=== PATIENT | female | born 1990 | race Asian ===

== ENCOUNTER 2021-04-04 07:10 | Inpatient (IN) | payer OTHER ==
[~2021-04-04] VITALS: Ht 154.9 cm; Wt 88.6 kg
[2021-04-04 08:00] LABS: BASOPHILS % (AUTO) 1 % (0-1); EOSINOPHILS % (AUTO) 2 % (1-7); LYMPHOCYTES % (AUTO) 17 % (22-44); MEAN CORPUSCULAR HEMOGLOBIN 30.1 pg (27.0-34.8); MEAN CORPUSCULAR HGB CONC 32.7 g/dL (32.4-35.8); MONOCYTES % (AUTO) 9 % (2-9); NEUTROPHILS % (AUTO) 71 % (42-75); PLATELET COUNT 242 x10^3/uL (130-400); RED BLOOD COUNT 4.04 x10^6/uL (3.82-5.3)
[2021-04-04] MEDS ORDERED: FENTANYL PF 100 MCG/2ML IVPush PRN ×3 (08:00)
[2021-04-04] MEDS ORDERED: OXYTOCIN 30U/ 0.9% NaCL 500ML 500 ML IV PRN (08:00)
[2021-04-04] MEDS ORDERED: OXYTOCIN 30U/ 0.9% NaCL 500ML 500 ML IV ONE ×3 (08:00)
[2021-04-04] MEDS ORDERED: ONDANSETRON 2MG/ML, 2ML IVPush PRN ×3 (08:00)
[2021-04-04] MEDS ORDERED: TERBUTALINE 1 MG/ML, 1ML IVPush PRN ×3 (08:00)
[2021-04-04] MEDS ORDERED: LACTATED RINGERS 1,000 ML IV SCH ×4 (08:00→09:30)
[2021-04-04] MEDS ORDERED: TERBUTALINE 1 MG/ML, 1ML SQ PRN ×3 (08:00)
[2021-04-04 08:01] LABS: MD NO
[2021-04-04] MEDS ORDERED: FENTANYL/BUPIV./NS/PF 250 ML EPIDCONT ONE (08:48)
[2021-04-04] MEDS ORDERED: PREN1TAB60 PO (09:14)
[2021-04-04] MEDS ORDERED: BUPIVACAINE 0.25% ONE (09:16)
[2021-04-04] MEDS ORDERED: LACTATED RINGERS 1,000 ML IVBOLUS PRN (09:30)
[2021-04-04] MEDS ORDERED: FENTANYL/BUPIV./NS/PF 250 ML EPIDCONT SCH (09:30)
[2021-04-04] MEDS ORDERED: NALOXONE 0.4 MG/ML, 1ML IVPush PRN (09:30)
[2021-04-04] MEDS ORDERED: NEWBORN KIT ONE (10:01)
[2021-04-04] MEDS ORDERED: LIDOCAINE 1%, 20ML ONE (10:01)
[2021-04-04] MEDS ORDERED: MISOPROSTOL 200 MCG TABLET ONE (10:03)
[2021-04-04] MEDS: EPHEDRINE 50 MG/ML, 1ML IVPush PRN ×2 (10:09→10:28)
[2021-04-04] MEDS ORDERED: MISOPROSTOL 200 MCG TABLET PR PRN (15:00)
[2021-04-04] MEDS ORDERED: OXYcodone/APAP 5/325MG TABLET PO PRN ×2 (15:00)
[2021-04-04] MEDS ORDERED: ONDANSETRON 2MG/ML, 2ML IV PRN (15:00)
[2021-04-04] MEDS ORDERED: SIMETHICONE 80 MG CHEW TAB PO PRN (15:00)
[2021-04-04] MEDS ORDERED: DOCUSATE 100 MG CAPSULE PO PRN (15:00)
[2021-04-04] MEDS ORDERED: ACETAMINOPHEN 325 MG TABLET PO PRN (15:00)
[2021-04-04] MEDS: OXYTOCIN 30U/ 0.9% NaCL 500ML 500 ML IV SCH (15:00)
[2021-04-04 17:26] VITALS: BP 108/68
[2021-04-04 19:45] VITALS: BP 123/84
[2021-04-04 22:20] LABS: BASOPHILS % (AUTO) 1 % (0-1); EOSINOPHILS % (AUTO) 1 % (1-7); LYMPHOCYTES % (AUTO) 12 % (22-44); MEAN CORPUSCULAR HGB CONC 32.7 g/dL (32.4-35.8); MEAN PLATELET VOLUME 8.2 fL (7.4-10.4); MONOCYTES % (AUTO) 10 % (2-9); NEUTROPHILS % (AUTO) 77 % (42-75); PLATELET COUNT 215 x10^3/uL (130-400); RED BLOOD COUNT 3.59 x10^6/uL (3.82-5.3); RED CELL DISTRIBUTION WIDTH 15.2 % (9.6-15.2)
[2021-04-04 22:21] LABS: MD NO
[2021-04-05 00:30] VITALS: BP 115/80
[2021-04-05] MEDS: IBUPROFEN 800 MG TABLET PO PRN ×2 (00:35→08:35)
[2021-04-05] MEDS: OXYTOCIN 30U/ 0.9% NaCL 500ML 500 ML IV SCH (01:00)
[2021-04-05 04:00] VITALS: BP 119/77
[2021-04-05 08:00] VITALS: BP 130/80
[2021-04-05] MEDS ORDERED: IBUP-1222 PO (08:26)
[2021-04-05] MEDS ORDERED: PRENATAL VIT/IRON/FA 1 EACH TABLET PO SCH (09:00)
== END 2021-04-05 16:25 | disposition home or self-care (01) | DRG 806 ==
LOC: LDOP 07:10 → LDIP 07:52 → 2NW 16:45
PROVIDERS: ADMIT Student in an Organized Health Care Education/Training Program; ATTEND Student in an Organized Health Care Education/Training Program
PROC: 10E0XZZ Delivery of Products of Conception, External Approach (ICD-10-PCS; principal; 2021-04-04)
PROC: 3E0R3BZ Introduction of Anesthetic Agent into Spinal Canal, Percutaneous Approach (ICD-10-PCS; 2021-04-04)
PROC: 00HU33Z Insertion of Infusion Device into Spinal Canal, Percutaneous Approach (ICD-10-PCS; 2021-04-04)
DX: O36.63X0 Maternal care for excessive fetal growth, third trimester, not applicable or unspecified (principal); O99.354 Diseases of the nervous system complicating childbirth; Z37.0 Single live birth; G51.0 Bell's palsy; Z3A.38 38 weeks gestation of pregnancy; Z82.49 Family history of ischemic heart disease and other diseases of the circulatory system; Z83.3 Family history of diabetes mellitus; Z20.822 Contact with and (suspected) exposure to COVID-19
CPT/HCPCS: 36415; 85025; 86592; 86850; 86900; 87635; G0378; J2590; J3010; J7120